=== PATIENT | female | born 1995 | race Caucasian/White ===

== ENCOUNTER 2020-03-22 11:16 | Emergency (ER) | payer SELFPAY ==
[2020-03-22 11:36] VITALS: RESP 18
[2020-03-22] MEDS ORDERED: FLUORESCEIN STRIPS 1 MG STRIP RIGHT EYE ONE (11:39)
[2020-03-22] MEDS ORDERED: PROPARACAINE 0.5% OPHTH DROPS 15 ML BTL RIGHT EYE STA (11:39)
--- NOTE | 2020-03-22 11:53 | ED ---
Eye Problem HPI - General Chief complaint: Eye Problems Stated complaint: Rt eye injury Time Seen by Provider: 03/22/20 11:39 Source: patient Mode of arrival: ambulatory Limitations: no limitations - History of Present Illness Initial comments: 24-year-old female presented for chief complaint of right eye pain. Patient does wear contact lenses. Patient not currently wearing the right contact lens. Patient states that yesterday she has some walk in her eye and rubbed her eye she states she was a contact lens however has still some head pain. She states she is unsure if she scratched her eye. Patient denies any fevers or surrounding redness she states her eye is sensitive to light she denies vision loss but states is blurry secondary to her eye watering. Patient denies additional complaints upon arrival patient appears uncomfortable protecting the right eye but nontoxic. - Related Data Previous Rx's Medication Instructions Recorded Tobramycin 0.3% Ophth Soln [Tobrex 2 drop RIGHT EYE Q4H 5 Days #4 ml 03/22/20 0.3% Ophth Soln] Allergies Allergy/AdvReac Type Severity Reaction Status Date / Time tomato Allergy Vomiting Verified 03/22/20 11:36 Review of Systems ROS Statement: Those systems with pertinent positive or pertinent negative responses have been documented in the HPI. ROS Other: All systems not noted in ROS Statement are negative. Past Medical History Past Medical History: No Reported History History of Any Multi-Drug Resistant Organisms: None Reported Past Surgical History: Adenoidectomy Past Psychological History: No Psychological Hx Reported Smoking Status: Never smoker Past Alcohol Use History: Rare Past Drug Use History: None Reported General Exam - General Exam Comments Initial Comments: General: The patient is awake and alert Eye: Pupils are equal, round and reactive to light, extra-ocular movements are intact. No nystagmus. There is normal conjunctiva bilaterally. No signs of icterus. Ears, nose, mouth and throat: There are moist mucous membranes and no oral lesions. Patient has new complete relief with proparacaine and upon inspection of the cornea there is a very faint poorly demarcated area of uptake near the center of vision, appears consistent to corneal abrasion, patient has no FB noted, no FB on lids. Musculoskeletal: Normal ROM, no tenderness. Strength 5/5. Sensation intact. Radial pulses equal bilaterally 2+. Neurological: A&O x 3. CN II-XII intact grossly, There are no obvious motor or sensory deficits. Coordination appears grossly intact. Speech is normal. Skin: Skin is warm and dry and no rashes or lesions are noted. Psychiatric: Cooperative, appropriate mood & affect, normal judgment. Limitations: no limitations Course Vital Signs 03/22/20 03/22/20 11:34 12:25 Temperature 98.4 F 98.1 F Pulse Rate 86 97 Respiratory 18 18 Rate Blood Pressure 186/97 163/82 O2 Sat by Pulse 98 97 Oximetry Medical Decision Making - Medical Decision Making 24yo with right eye pain, relieved with proparacaine. Patient has mild injection. Evidence of fluorescein examination concerning for an abrasion. Differential to contact lens wear there is risk of developing corneal ulcer I discussed this at length with patient including the risk of scarring of vision loss apparently. Recommended very close follow-up within the next 24 hours with ophthalmology and using antibiotics as directed with the avoidance of contact lens use. Patient is agreeable to care plan and dishcarge. Discussed case wtih Dr. Casillas who is agreeable to discharge and care plan. Disposition Clinical Impression: Corneal abrasion Disposition: HOME SELF-CARE Condition: Good Instructions (If sedation given, give patient instructions): Corneal Abrasion (ED) Additional Instructions: Please use medication as discussed. Please follow-up with ophthalmology TOMORROW, for close follow-up given history of abrasion of eye with contact use you are more likely to develop ulceration. Please return to emergency room if the symptoms increase or worsen or for any other concerns. Prescriptions: Tobramycin 0.3% Ophth Soln [Tobrex 0.3% Ophth Soln] 2 drop RIGHT EYE Q4H 5 Days #4 ml Is patient prescribed a controlled substance at d/c from ED?: No Referrals: None,Stated [Primary Care Provider] - 1-2 days Linda Torres MD [STAFF PHYSICIAN] - 1-2 days Time of Disposition: 11:53
[2020-03-22 12:29] VITALS: BP 163/82; PULSE 97; TEMP 98.1
== END 2020-03-22 12:25 | disposition home or self-care (01) ==
LOC: EC 11:16
DX: S05.01XA Injury of conjunctiva and corneal abrasion without foreign body, right eye, initial encounter (principal); Z91.018 Allergy to other foods; X58.XXXA Exposure to other specified factors, initial encounter
CPT/HCPCS: 99283